=== PATIENT | female | born 1965 | race Caucasian/White ===

== ENCOUNTER 2020-07-05 04:22 | Emergency (ER) | payer MEDICARE, MEDICAID, SELFPAY ==
[2020-07-05 05:30] VITALS: BP 100/69; PULSE 58; RESP 16; TEMP 35.8; O2SAT 100; BMI 26.2
== END 2020-07-05 07:30 | disposition left against medical advice (07) ==
PROVIDERS: Emergency Provider Emergency Medicine
DX: G89.29 Other chronic pain (principal)
CPT/HCPCS: 99281; 99282

== ENCOUNTER 2020-07-28 13:36 | Outpatient (REF) | payer MEDICARE, SELFPAY | END 2020-07-28 13:37 | disposition home or self-care (01) | LOC: HO.LAB 13:36 | PROVIDERS: Visit Provider Internal Medicine | DX: Z20.828 Contact with and (suspected) exposure to other viral communicable diseases (principal) | CPT/HCPCS: 87635 ==